=== PATIENT | female | born 1990 | race African-American/Black ===

== ENCOUNTER 2024-02-21 04:19 | Inpatient (IN) | payer OTHER ==
[2024-02-13 15:31] VITALS: BMI 24.6
[2024-02-21] MEDS ORDERED: VASopressin 20 UNITS/ML VIAL IV ONE (11:04)
[2024-02-21] MEDS ORDERED: PROPOFOL 40 ML ONE (12:36)
[2024-02-21] MEDS ORDERED: MIDAZOLAM HCL 2 MG/2 ML SINGLE DOSE VIAL ONE ×3 (12:37→14:06)
[2024-02-21] MEDS ORDERED: ONDANSETRON 4 MG/2 ML VIAL ONE (12:37)
[2024-02-21] MEDS ORDERED: ONDANSETRON 4 MG/2 ML VIAL IVPUSH PRN ×2 (12:54→13:19)
[2024-02-21] MEDS ORDERED: oxyCODONE HCL 5 MG TABLET PO PRN ×3 (12:54→13:19)
[2024-02-21] MEDS ORDERED: IBUPROFEN 800 MG/8 ML IJ IVPB PRN ×2 (13:19→15:27)
[2024-02-21] MEDS ORDERED: DEXAMETHASONE SOD PHOSPHATE 4 MG/1 ML VIAL ONE (13:22)
[2024-02-21] MEDS ORDERED: ceFAZolin SODIUM 1 GM VIAL ONE (13:22)
[2024-02-21] MEDS ORDERED: ELECTROLYTE-148 SOLN 1,000 ML IV SCH (13:30)
[2024-02-21] MEDS ORDERED: morphine SULFATE/PF 1 MG/2 ML (2cc Syringe - QUVA) IT ONE (13:47)
[2024-02-21] MEDS ORDERED: VERAPAMIL HCL 5 MG/2 ML VIAL IVPUSH ONE (13:52)
[2024-02-21] MEDS: ceFAZolin SODIUM 1 GM VIAL IVPB ONE (13:53)
[2024-02-21] MEDS ORDERED: TRANEXAMIC ACID 1000 MG/10 ML VIAL ONE (14:14)
[2024-02-21] MEDS ORDERED: KETOROLAC TROMETHAMINE 30 MG/1 ML VIAL ONE (14:58)
[2024-02-21] MEDS: LACTATED RINGERS SOLUTION 1,000 ML IV SCH (15:30)
[2024-02-21] MEDS ORDERED: NALOXONE HCL 0.4 MG/ML VIAL IVPUSH PRN (15:32)
[2024-02-21] MEDS: ACETAMINOPHEN 1000 MG/100 ML BAG IVPB PRN (15:48)
[2024-02-21 18:32] VITALS: RESP 18
[2024-02-21] MEDS: KETOROLAC TROMETHAMINE 30 MG/1 ML VIAL IVPUSH SCH (18:44)
[2024-02-21] MEDS: CEFAZOLIN 2 GM/D5W 2 GM/50 ML ML IVPB SCH (19:24)
[2024-02-21] MEDS: ACETAMINOPHEN INJECTION 100 ML ONE (19:36)
[2024-02-22 14:26] LABS: HEMATOCRIT 26.1 % (32.4-45.2); HEMOGLOBIN 8.6 GM/dL (10.7-15.3); MCH 28.6 pg (25.7-33.7); MCHC 32.8 g/dl (32.0-36.0); MEAN CELL VOLUME 87.1 fl (80-96); MEAN PLT VOLUME 9.3 fl (7.5-11.1); PLATELET COUNT 158 10^3/uL (134-434); RDW 13.1 % (11.6-15.6); WHITE BLOOD COUNT 10.8 K/mm3 (4.0-10.0)
[2024-02-22] MEDS: IBUPROFEN 600 MG TABLET (FP) PO PRN (15:51)
[2024-02-22] MEDS: ACETAMINOPHEN 325 MG TABLET (FP) PO PRN (17:33)
[2024-02-23] MEDS: SIMETHICONE 80 MG TAB.CHEW (FP) PO PRN (06:42)
[2024-02-23 08:23] LABS: BASO % 0.4 % (0-2.0); HEMATOCRIT 24.5 % (32.4-45.2); HEMOGLOBIN 8.1 GM/dL (10.7-15.3); LYMPH % 16.4 % (8-40); MCH 28.8 pg (25.7-33.7); MEAN CELL VOLUME 87.1 fl (80-96); MEAN PLT VOLUME 9.3 fl (7.5-11.1); MONO % 10.1 % (3.8-10.2); NEUT % 70.1 % (42.8-82.8); PLATELET COUNT 131 10^3/uL (134-434); RBC 2.81 M/mm3 (3.60-5.2); RDW 13.6 % (11.6-15.6); WHITE BLOOD COUNT 8.1 K/mm3 (4.0-10.0)
[2024-02-23 09:17] VITALS: BP 117/66; PULSE 93; TEMP 98.4
== END 2024-02-23 17:57 | disposition home or self-care (01) | DRG 743 ==
LOC: J2C 04:19 → J3W 17:59
PROVIDERS: ADMIT Obstetrics & Gynecology; ATTEND Obstetrics & Gynecology
PROC: 0UB90ZZ Excision of Uterus, Open Approach (ICD-10-PCS; principal; 2024-02-21 12:00)
DX: D25.1 Intramural leiomyoma of uterus (principal); R10.2 Pelvic and perineal pain
CPT/HCPCS: 36415; 81025; 85025; 85027; 86850; 86900; 86901; 88305-TC; 93005; 93010; 94760; J0131